=== PATIENT | female | born 1980 | race Two or more races ===

== ENCOUNTER 2024-12-22 17:28 | Emergency (ER) | payer OTHER ==
[~2024-12-22] VITALS: Ht 167.6 cm; Wt 70.3 kg
[2024-12-22] MEDS ORDERED: 0.9 % SODIUM CHLORIDE 500 ML IV ONE (21:00)
[2024-12-22 21:51] LABS: HEMATOCRIT 36.9 % (36.0-45.00); HEMOGLOBIN 12.3 g/dL (12.0-15.00); MEAN CELL VOLUME 89.3 fL (80.00-100.00); MEAN CORPUSCULAR HEMOGLOBIN 29.8 pg (27.00-32.0); MEAN CORPUSCULAR HGB CONC 33.3 g/dl (32.0-36.0); PLATELET COUNT 301 K/uL (150-450); RED BLOOD COUNT 4.13 M/uL (4.00-6.00); RED CELL DISTRIBUTION WIDTH 14.1 % (11.5-14.5)
[2024-12-22 22:05] LABS: ABG PH 7.411 (7.35-7.45); ABG PO2 101.8 mmHg (80-100); ABG pCO2 36.3 mmHg (35-45); BASE EXCESS -1.5 mmol/l; BICARBONATE 22.5 mmol/l (23-25); SaO2 97.9 %; Tco2 23.7 mmol/l
[2024-12-22 22:13] LABS: BILIRUBIN TOTAL 0.61 mg/dL (0.3-1.2); CALCIUM 9.4 mg/dL (8.5-10.1); CREATININE SERUM 0.65 mg/dL (0.55-1.02); GFR 99.02; GLOBULINA 3.5 G/DL (2.4-3.5); POTASSIUM 3.42 mEq/L (3.5-5.1); TOTAL PROTEIN 7.5 gm/dL (6.4-8.2)
[2024-12-22 22:36] LABS: allen test SATISFACTORY; o2 21 %; puncture site RADIAL LEFT
== END 2024-12-23 00:40 | disposition home or self-care (01) ==
LOC: ER 17:30
PROVIDERS: Preventive Medicine Public Health & General Preventive Medicine
DX: R51.9 Headache, unspecified (principal); T59.91XA Toxic effect of unspecified gases, fumes and vapors, accidental (unintentional), initial encounter; Z88.4 Allergy status to anesthetic agent
CPT/HCPCS: 36415; 82803; 96365; 96366; 99282; J7042